=== PATIENT | male | born 1955 | race Caucasian/White ===

== ENCOUNTER 2018-04-08 07:03 | Emergency (ER) | payer BC ==
[2018-04-08 07:18] VITALS: BP 145/92
--- NOTE | 2018-05-06 09:25 | UC ---
Miladys Devine Gabriel, scribed for Giovanna Knight MD on 04/08/18 at 0742 . Dental HPI - HPI Summary HPI Summary: This patient is a 62 year old M presenting to [facility] [place] with a chief complaint of swelling and pain to the right upper jaw that began yesterday afternoon. The patient rates the pain 3/10 in severity. Patient reports sinus congestion and right facial pain. Pt states he hasnt see his dentist in years and has poor teeth. The last time he was seen was at [facility]. Patient denies poor taste in his mouth, cough, fever, and SOB. NKDA. Pt states the pain woke him up in the middle of the night and that he sleeps on 3 pillows at night. Pt declined an ear flush and stated that he will perform it at home himself because he is concerned with the potential cost. - History of Current Complaint Chief Complaint: Luciano Stated Complaint: SWOLLEN FACE Time Seen by Provider: 04/08/18 07:31 Hx Obtained From: Patient Onset/Duration: Lasting Days, Still Present Severity: Mild Pain Intensity: 3 Pain Scale Used: 0-10 Numeric - Allergies/Home Medications Allergies/Adverse Reactions: Allergies Allergy/AdvReac Type Severity Reaction Status Date / Time No Known Allergies Allergy Verified 04/08/18 07:17 Home Medications: Home Medications Aspirin 81 mg PO 04/08/18 [History] Atorvastatin* [Lipitor*] 20 mg PO 1700 04/08/18 [History Confirmed 04/08/18] Lisinopril 5 mg PO 04/08/18 [History] PMH/Surg Hx/FS Hx/Imm Hx Cardiovascular History: Hypertension, Other Other Cardiovascular History: HLD Other History Of: Negative For: HIV - Surgical History Surgical History: Yes Surgery Procedure, Year, and Place: FIVE SCREWS IN RIGHT FIBULA - Family History Known Family History: Negative: Blood Disorder - Social History Alcohol Use: Daily Substance Use Type: None Smoking Status (MU): Current Every Day Smoker Type: eCigarettes Amount Used/How Often: 1 PPD Length of Time of Smoking/Using Tobacco: 20-30 YEARS Have You Smoked in the Last Year: Yes Review of Systems ENT: Sinus Congestion Musculoskeletal: Other: - facial swelling All Other Systems Reviewed And Are Negative: Yes Physical Exam - Summary Physical Exam Summary: Appearance: Well-Nourished Eye Exam: Normal ENT Exam: bilateral cerumen impaction Respiratory Exam: Normal, no dyspnea, no tachypnea, normal respiratory rate. Chest non-tender, Lungs clear, Normal breath sounds, No respiratory distress, No accessory muscle use Cardiovascular Exam: Normal Cardiovascular: Heart rate regular, good general skin color, good capillary refill Abdominal Exam: Normal Abdomen Description: Nontender, No Organomegaly, Soft Bowel Sounds: Present Musculoskeletal Exam: Normal Musculoskeletal: Strength Intact Neurological Exam: Normal: nonfocal, grossly intact Psychological Exam: Normal: conversing easily and appropriately Skin Exam: Normal: no visible or reported rash Triage Information Reviewed: Yes Vital Signs: Initial Vital Signs Temp 98.5 F 04/08/18 07:14 Pulse 103 04/08/18 07:14 Resp 18 04/08/18 07:14 BP 145/92 04/08/18 07:14 Pulse Ox 99 04/08/18 07:14 Vital Signs Reviewed: Yes Dental Complaint Course/Dx - Differential Dx/Diagnosis Provider Diagnoses: Cerumen impaction Discharge - Sign-Out/Discharge Documenting (check all that apply): Patient Departure - Discharge Plan Condition: Stable Disposition: HOME Prescriptions: Amoxicillin/Clavulanate TAB* [Augmentin TAB 875*] 875 mg PO BID #28 tab Chlorhexidine MW 0.12% 473ML* [Peridex Mouth Wash 0.12%*] 15 ml MT QID #473 ml Patient Education Materials: Dental Abscess (ED), Cerumen Impaction (ED) Referrals: Stanley Hdez MD [Primary Care Provider] - Additional Instructions: Your blood pressure was elevated during today's visit, 145/92. Please follow up with your primary care provider in 1-2 weeks. Seek medical attention for worse or new problems in the meantime. Follow up with a dentist - next week if possible. Yogurt every day while taking antibiotic. Follow up with your primary care physician, per routine . Bring your medications to your dentist appointment. - Billing Disposition and Condition Condition: STABLE Disposition: Home The documentation as recorded by the Miladys young Gabriel accurately reflects the service I personally performed and the decisions made by me, Giovanna Knight MD.
== END 2018-04-08 07:55 | disposition home or self-care (01) ==
LOC: UCEAST 07:03
DX: H61.23 Impacted cerumen, bilateral (principal); R09.81 Nasal congestion; I10 Essential (primary) hypertension; E78.5 Hyperlipidemia, unspecified; F17.210 Nicotine dependence, cigarettes, uncomplicated
CPT/HCPCS: 99212; G0463